=== PATIENT | male | born 1975 | race Caucasian/White ===

== ENCOUNTER 2016-12-09 10:26 | Emergency (ER) | payer OTHER | END 2016-12-09 11:22 | disposition home or self-care (01) | LOC: ER 10:26 | DX: M54.5 Low back pain (principal); M79.605 Pain in left leg; F17.210 Nicotine dependence, cigarettes, uncomplicated; Z88.5 Allergy status to narcotic agent | CPT/HCPCS: 96372; 99282-25; J1170 ==